=== PATIENT | male | born 1990 ===

== ENCOUNTER 2024-03-18 05:25 | Day surgery (SDC) | payer OTHER ==
[2024-03-13 11:49] VITALS: BP 130/84
[2024-03-13 11:52] LABS: HEMATOCRIT 45.3 % (39.0-48.0); HEMOGLOBIN 15.5 g/dL (13-16.00); MEAN CELL VOLUME 89.5 fL (80.0-100.00); MEAN CORPUSCULAR HEMOGLOBIN 30.5 pg (27.00-32.0); MEAN CORPUSCULAR HGB CONC 34.1 g/dl (32.0-36.0); PLATELET COUNT 260 K/uL (150-450); RED BLOOD COUNT 5.07 M/uL (4.00-6.00); RED CELL DISTRIBUTION WIDTH 13.8 % (11.5-14.5)
[2024-03-13 11:53] LABS: PH,URINE 5.5 (5.0-8.0); URINE BILIRRUBIN Negative (NEGATIVE); URINE BLOOD Negative; URINE COLOR Yellow; URINE GLUCOSE Negative (NEGATIVE); URINE KETONE Trace (NEGATIVE); URINE LEUKOCYTE Negative; URINE NITRATE Negative; URINE PROTEIN Negative (NEGATIVE); URINE UROBILINOGEN 0.2 E.U./dl
[2024-03-13 11:57] LABS: URINE EPITHELIAL CELLS 3.5 uL (0.0-38.8); URINE WBC 11.5 uL (0.0-23.2)
[2024-03-13 12:24] LABS: ALBUMIN 4.4 gm/dL (3.4-5.0); BILIRUBIN TOTAL 1.19 mg/dL (0.3-1.2); CALCIUM 9.9 mg/dL (8.5-10.1); CREATININE SERUM 0.98 mg/dL (0.70-1.30); GFR 88.64; GLOBULINA 3.7 G/DL (2.4-3.5); POTASSIUM 4.4 mEq/L (3.5-5.1); TOTAL PROTEIN 8.1 gm/dL (6.4-8.2)
[2024-03-13 12:27] LABS: PARTIAL THROMBOPLASTIN TIME 31.9 SECONDS (22.0-34.0); PROTHROMBIN TIME 10.9 SECONDS (9.0-11.5)
[2024-03-13 12:45] LABS: URINE APPEARANCE CLEAR; URINE BACTERIA 3.7 uL (0.0-1933); URINE RBC 1.8 uL (0.0-20.8)
[~2024-03-18] VITALS: Ht 170.2 cm; Wt 87.1 kg
[~2024-03-18 05:25] MED LIST: BUPROPION XL300 MG PO; CLONAZEPAM2 MG PO; FINASTERIDE1 MG PO; TRAZODONE HCL150 MG PO
[2024-03-18] MEDS ORDERED: POVIDONE-IODINE 118 ML BOTT TOP ONE (07:45)
[2024-03-18] MEDS ORDERED: HEMOSTATIC MATRIX 1 KIT KIT TOP ONE (07:45)
[2024-03-18] MEDS ORDERED: BUPIVACAINE HCL 30 ML VIAL IJ ONE (07:45)
[2024-03-18] MEDS ORDERED: PIPERACILLIN/TAZOBACTAM SODIUM 3.375 GM VIAL IV ONE ×2 (07:45→10:00)
[2024-03-18] MEDS ORDERED: LIDOCAINE HCL 1%/EPINEPHRINE 20ML VIAL IJ ONE (07:45)
[2024-03-18] MEDS ORDERED: DIBUCAINE 30 GM TUBE RECTAL ONE (08:00)
[2024-03-18] MEDS ORDERED: RECTICARE30 GM TOP (08:08)
[2024-03-18] MEDS ORDERED: PERCOCET 5-3251 EACH PO (08:09)
[2024-03-18] MEDS ORDERED: BUPIVACAINE LIPOSOME/PF 266 MG/20 ML VIAL IJ ONE (09:30)
== END 2024-03-18 14:35 | disposition home or self-care (01) ==
LOC: CIR.AMB 05:25
PROVIDERS: ATTEND Surgery
DX: K60.3 Anal fistula (principal); R19.4 Change in bowel habit; R19.5 Other fecal abnormalities; Z91.013 Allergy to seafood; F41.8 Other specified anxiety disorders